=== PATIENT | male | born 1955 | race African-American/Black ===

== ENCOUNTER → 2019-10-31 | Outpatient (CLI) | payer MEDICARE ==
[~2019-10-31] MED LIST: ACID1TAB3 PO; ALLO100T30 PO; ALLO300T PO; AMLO10TA8 PO; AMOX1TAB64 PO; ASCO500T56 PO; ASPI-650 PO; ASPI325T17 PO; ATEN100T PO; ATOR40TA78 PO; DICL100G19 TP; DILT120T4 PO; DOCU-180; DOCU100C33 PO; HYDR-3342 PO; INSU100V35 PO; INSU100V8 SQ; LIDO700A30 TD; LISI-170 PO; METAMUCIL1 EACH PO; METF500T17 PO; MULT-208 PO; OXYC-307 PO; PREG150C PO; REGADENOSON 0.4 MG/5 ML SYRINGE ONE; SEMA1PEN PO; SITA100T PO; VERA180C2 PO; VITA150T PO
== END | disposition home or self-care (01) ==
LOC: CFH 08:48
PROVIDERS: ATTEND Internal Medicine Cardiovascular Disease
DX: R06.02 Shortness of breath (principal); I10 Essential (primary) hypertension
CPT/HCPCS: 71046; 78452; 93017; A9502; J2785

== ENCOUNTER → 2019-11-01 | Outpatient (CLI) | payer MEDICARE ==
[~2019-11-01] MED LIST changes: -REGADENOSON 0.4 MG/5 ML SYRINGE ONE
== END | disposition home or self-care (01) ==
LOC: CVU 07:52
PROVIDERS: ATTEND Internal Medicine Cardiovascular Disease
DX: R06.02 Shortness of breath (principal)
CPT/HCPCS: 93306; 93356